=== PATIENT | male | born 1980 | race Caucasian/White ===

== ENCOUNTER 2017-02-15 06:53 | Inpatient (IN) | payer OTHER ==
--- NOTE | 2017-02-15 08:07 | ER Document Report ---
ED Medical Screen (RME) - General Chief Complaint: Abscess Stated Complaint: LEFT ARM ABRASION Time seen by provider: 08:03 Mode of Arrival: Ambulatory Information source: Patient Notes: 36 yo male presents to ed for infected needle stick to left AC. States the swelling and redness has been for a week and he lanced it just before coming to ed. TRAVEL OUTSIDE OF THE [place] IN LAST 30 DAYS: No - HPI Onset: Last week Onset/Duration: Gradual Quality of pain: Sharp, Throbbing Pain Level: 4 Associated Symptoms: Other - swelling and redness to arm Exacerbated by: Movement Relieved by: Denies - Related Data Smoking: Cigarettes, Other - 1/2 ppd Frequency of alcohol use: None Drug Abuse: Heroin, Methamphetamine Allergies/Adverse Reactions: No Known Allergies Allergy (Verified 02/22/15 19:01) Past Medical History Renal/ Medical History: Denies: Hx Peritoneal Dialysis - Immunizations Hx Diphtheria, Pertussis, Tetanus Vaccination: No Physical Exam - Vital signs Vitals: Temp Pulse Resp BP Pulse Ox 98.9 F 118 H 18 141/80 H 99 02/15/17 07:00 02/15/17 07:00 02/15/17 07:00 02/15/17 07:00 02/15/17 07:00 Course - Vital Signs Vital signs: Temp Pulse Resp BP Pulse Ox 98.9 F 118 H 18 141/80 H 99 02/15/17 07:00 02/15/17 07:00 02/15/17 07:00 02/15/17 07:00 02/15/17 07:00
[2017-02-15 08:53] LABS: ABSOLUTE EOSINOPHILS # (AUTO) 0.1 10^3/uL (0.0-0.6); ABSOLUTE LYMPHOCYTES (AUTO) 1.8 10^3/uL (0.5-4.7); ABSOLUTE NEUT (AUTO) 7.3 10^3/uL (1.7-8.2); BASOPHILS % (AUTO) 0.4 % (0-2); EOSINOPHILS % (AUTO) 0.9 % (0-6); HEMATOCRIT 46.3 % (37.9-51.0); HEMOGLOBIN 16.1 g/dL (13.5-17.0); LYMPHOCYTES % (AUTO) 17.1 % (13-45); MEAN CORPUSCULAR HEMOGLOBIN 31.1 pg (27.0-33.4); MEAN CORPUSCULAR HGB CONC 34.8 g/dL (32.0-36.0); MEAN CORPUSCULAR VOLUME 90 fl (80-97); MONOCYTES % (AUTO) 10.2 % (3-13); RED BLOOD COUNT 5.17 10^6/uL (4.35-5.55); RED CELL DISTRIBUTION WIDTH 13.7 % (11.5-14.0); SEGMENTED NEUTROPHILS % (AUTO) 71.4 % (42-78); WHITE BLOOD COUNT 10.3 10^3/uL (4.0-10.5)
[2017-02-15 09:00] LABS: APPEARANCE,URINE SLIGHTLY-CLOUDY; BILIRUBIN,URINE NEGATIVE (NEGATIVE); CALCIUM OXALATE CRYSTALS,URINE FEW /HPF; GLUCOSE, URINE NEGATIVE (NEGATIVE); KETONES,URINE NEGATIVE (NEGATIVE); LEUKOCYTE ESTERASE,URINE NEGATIVE (NEGATIVE); NITRITE,URINE NEGATIVE (NEGATIVE); PROTEIN,URINE 30 mg/dL (NEGATIVE); URINE SPECIFIC GRAVITY 1.031
[2017-02-15 09:12] LABS: ALANINE AMINOTRANSFERASE 261 U/L (21-72); ALBUMIN 4.8 g/dL (3.5-5.0); ALKALINE PHOSPHATASE 81 U/L (38-126); ANION GAP 14 (5-19); ASPARTATE AMINO TRANSFERASE 98 U/L (17-59); BILIRUBIN,DIRECT 0.4 mg/dL (0.0-0.4); BILIRUBIN,TOTAL 1.3 mg/dL (0.2-1.3); BLOOD UREA NITROGEN 13 mg/dL (7-20); CARBON DIOXIDE 30 mmol/L (22-30); CHLORIDE 98 mmol/L (98-107); CREATININE RESULT 0.71 mg/dL (0.52-1.25); GLUCOSE 87 mg/dL (75-110); POTASSIUM 3.5 mmol/L (3.6-5.0); SODIUM 141.8 mmol/L (137-145); TOTAL PROTEIN 8.6 g/dL (6.3-8.2)
[2017-02-15 09:17] LABS: URINE BARBITURATES SCREEN NEGATIVE; URINE METHADONE SCREEN NEGATIVE; URINE OPIATES LOW UNCONFIRMED POSITIVE; URINE PHENCYCLIDINE SCREEN NEGATIVE
[2017-02-15] MEDS ORDERED: CLINDAMYCIN HCL 150 MG CAPSULE PO ONE (10:11)
--- NOTE | 2017-02-15 10:12 | ER Document Report ---
ED General - General Chief Complaint: Abscess Stated Complaint: LEFT ARM ABRASION Mode of Arrival: Ambulatory TRAVEL OUTSIDE OF THE [place] IN LAST 30 DAYS: No - HPI Patient complains to provider of: left arm abscess Notes: Patient has a history of polysubstance abuse and is a IV drug user coming in for possible abscess in the left antecubital region. Patient states that she has recently used IV drugs with formation of her red lump in the crease of his arm he did try to drain the abscess and self with a suppressed cut stated there was only clear fluid that was expressed from the wound. Patient denies fevers chills nausea vomiting - Related Data Allergies/Adverse Reactions: No Known Allergies Allergy (Verified 02/22/15 19:01) Past Medical History - General Information source: Patient - Social History Smoking Status: Current Every Day Smoker Chew tobacco use (# tins/day): No Frequency of alcohol use: None Drug Abuse: Heroin, Methamphetamine Family History: Reviewed & Not Pertinent. denies: CAD Patient has suicidal ideation: No Patient has homicidal ideation: No Renal/ Medical History: Denies: Hx Peritoneal Dialysis - Immunizations Hx Diphtheria, Pertussis, Tetanus Vaccination: No Physical Exam - Vital signs Vitals: Temp Pulse Resp BP Pulse Ox 98.9 F 118 H 18 141/80 H 99 02/15/17 06:59 02/15/17 06:59 02/15/17 06:59 02/15/17 06:59 02/15/17 06:59 Interpretation: Normal - General General appearance: Appears well, Alert - HEENT Head: Normocephalic, Atraumatic Eyes: Normal Pupils: PERRL - Respiratory Respiratory status: No respiratory distress Chest status: Nontender Breath sounds: Normal Chest palpation: Normal - Cardiovascular Rhythm: Regular Heart sounds: Normal auscultation Murmur: No - Abdominal Inspection: Normal Distension: No distension Bowel sounds: Normal Tenderness: Nontender Organomegaly: No organomegaly - Back Back: Normal, Nontender - Extremities General upper extremity: Nontender, Normal color, Normal ROM, Normal temperature. No: Normal inspection - Patient has a golf ball size lump in the crease of the left antecubital region with bedside ultrasound showing fluid collection and within the fluid collection there visualization of a vessel General lower extremity: Normal inspection, Nontender, Normal color, Normal ROM , Normal temperature, Normal weight bearing. No: Oscar's sign - Neurological Neuro grossly intact: Yes Cognition: Normal Orientation: AAOx4 [place] Coma Scale Eye Opening: Spontaneous [place] Coma Scale Verbal: Oriented [place] Coma Scale Motor: Obeys Commands [place] Coma Scale Total: 15 Speech: Normal Motor strength normal: LUE, RUE, LLE, RLE Sensory: Normal - Psychological Associated symptoms: Normal affect, Normal mood - Skin Skin Temperature: Warm Skin Moisture: Dry Skin Color: Normal Course - Re-evaluation Re-evalutation: 02/15/17 10:11 Concern for abscess and antecubital fossa due to patient admitting to be an IV drug user. Bedside ultrasound that showed possible fluid collection around antecubital vein. Contacted surgeon on-call for possible IND 02/15/17 15:09 Surgery will take the patient to the OR. Patient was given oral clindamycin initially will add on IV antibiotics. - Vital Signs Vital signs: Temp Pulse Resp BP Pulse Ox 98.9 F 118 H 18 141/80 H 99 02/15/17 07:00 02/15/17 07:00 02/15/17 07:00 02/15/17 07:00 02/15/17 07:00 - Laboratory Result Diagrams: 02/15/17 08:20 02/15/17 08:20 Laboratory results interpreted by me: 02/15/17 02/15/17 08:20 08:20 Potassium 3.5 L AST 98 H ALT 261 H Total Protein 8.6 H Urine Protein 30 H Urine Urobilinogen 4.0 H Discharge - Discharge Clinical Impression: left antecubital abscess, IV drug user Admitting Provider: Surgicalist - [facility] Admitted: OR
[2017-02-15] MEDS ORDERED: AMPICILLIN SOD/SULBACTAM 3 GM VIAL IV ONE (12:30)
[2017-02-15] MEDS ORDERED: NORMAL SALINE 1000 ML 1,000 ML IV ONE ×2 (12:30)
[2017-02-15] MEDS ORDERED: LIDOCAINE 0.5% INJ-PF (5 MG/ML) 50 ML SDV ONE (16:27)
[2017-02-15] MEDS ORDERED: PROPOFOL INJ 200 MG/20 ML VIAL IV ONE (17:00)
[2017-02-15] MEDS ORDERED: DEXMEDETOMIDINE INJ 80 MCG/20 ML VIAL IV ONE (17:01)
[2017-02-15] MEDS ORDERED: MIDAZOLAM 2 MG/2 ML INJ ONE (17:01)
[2017-02-15] MEDS ORDERED: FENTANYL CITRATE INJ/PF 100 MCG/2 ML AMPUL ONE (17:01)
[2017-02-15] MEDS ORDERED: ONDANSETRON HCL INJ/PF 4 MG/2 ML SDV ONE (17:01)
[2017-02-15] MEDS ORDERED: FENTANYL CITRATE INJ/PF 100 MCG/2 ML AMPUL IV PRN ×3 (17:24)
[2017-02-15] MEDS ORDERED: MEPERIDINE HCL/PF INJ 25 MG/1 ML DISP.SYRIN IV PRN (17:24)
[2017-02-15] MEDS ORDERED: PROMETHAZINE HCL INJ 25 MG/1 ML VIAL IV PRN ×2 (17:24)
[2017-02-15] MEDS ORDERED: DIPHENHYDRAMINE HCL 50 MG/ML VIAL IV PRN (17:24)
--- NOTE | 2017-02-15 17:38 | HISTORY AND PHYSICAL E ---
History and Physical NAME: ROSA MITTAL : 1980 AGE: 36Y ADMITTED: 02/15/2017 ROOM: ED47 CHIEF COMPLAINT: Left arm pain. HISTORY OF PRESENT ILLNESS: This is a 36-year-old male who injected his left cubital area with heroin about 5 to 7 days ago. Today, he noted it be getting bigger, half a golf ball size according to the patient, that he tried to make a cut and remove some bloody mildly purulent material. He decided to come to the emergency room because it is still swollen and painful and red. PAST MEDICAL HISTORY: He has a past history of a sinus infection at this time. SOCIAL HISTORY: History of off and on IV drug use. He claims he does not use it regularly to prevent the risk of withdrawal symptoms. ALLERGIES: None known. REVIEW OF SYSTEMS: As in HPI, having cough and some nasal congestion. Left arm pain and swelling of the left elbow site. The rest of the systems unremarkable. PHYSICAL EXAMINATION: GENERAL: Well-developed, well-nourished, 36-year-old male, alert and oriented, complaining of left arm pain. HEENT: Neck is supple, and the face has some reddish circular areas. LUNGS: Clear. HEART: Showed regular sinus rhythm. ABDOMEN: Soft and nontender. EXTREMITIES: On the left cubital area, there is a reddish elevated site roughly about 5 x 6 cm by about 3 cm. There is a maceration on the mid part about 1.5 cm long but noted to be dry. It is noted to be very tender. The rest of the mid arm is red. Left arm pulses are palpable. IMPRESSION: Abscess of the left cubital area of the left arm. PLAN: The plan is for patient incision and drainage of the abscess. DICTATING PHYSICIAN: BRADLEY WOLF M.D. [id number] PHY#: [id number] ID: [id number] JOB#: [id number] ACCT: [id number] cc:BRADLEY WOLF M.D. NO Felicita NERI
[2017-02-15] MEDS ORDERED: LIDOCAINE 1% INJ-PF (10 MG/ML) 30 ML SDV ONE (17:54)
[2017-02-15] MEDS ORDERED: BUPIVACAINE HCL 0.5 % INJ/PF 30 ML SDV ONE (17:54)
--- NOTE | 2017-02-15 18:08 | OPERATIVE REPORT E ---
Operative Report NAME: ROSA MITTAL : 1980 AGE: 36Y DATE OF SURGERY: 02/15/2017 ROOM: ED47 PREOPERATIVE DIAGNOSIS: Abscess left cubital area of the left arm. POSTOPERATIVE DIAGNOSIS: Abscess left cubital area of the left arm. OPERATION: Incision and drainage and Pulse Evac of the left cubital abscess. SURGEON: BRADLEY WOLF M.D. ANESTHESIA: Local, MAC. INDICATION: This is a 36-year-old male who injected his left forearm vein with heroin about 5 to 7 days ago. This is noted to be more swollen today, and he attempted to make a little incision with a knife on top of it. However, it still swollen and painful and therefore went to the ER. DESCRIPTION OF PROCEDURE: After adequate IV sedation, the left cubital area was then prepped and draped in the usual sterile fashion. Local anesthesia infiltrated over the abscess in a tangential fashion following the previous cut made by the patient. Next, a small amount of purulent material gushed out and a specimen obtained for culture. The incision site was then probed and extended distally and proximally to about 3 cm long. The cavity was completely evacuated. It was subsequently Pulse Evac with 2 liters of saline. Following this, hemostasis obtained with electrocautery and the defect packed with 1/4-inch Iodoform gauze. A sterile dressing was placed over the operative site. Needle, instrument, and sponge count were all correct, and estimated blood loss was minimal. DICTATING PHYSICIAN: BRADLEY WOLF M.D. [id number] PHY#: [id number] ID: [id number] JOB#: [id number] ACCT: [id number] cc:BRADLEY WOLF M.D. >
[2017-02-15] MEDS ORDERED: OXYCODONE-ACETAMINOPHEN 5-325 MG TABLET PO PRN (18:21)
[2017-02-15] MEDS ORDERED: NORMAL SALINE 1000 ML 1,000 ML IV PRN (18:24)
[2017-02-15] MEDS ORDERED: AMPICILLIN SODIUM/SULBACTAM NA 3 GM in NORMAL SALINE 100 ML IV ONE (19:45)
[2017-02-15] MEDS: AMPICILLIN SODIUM/SULBACTAM NA 3 GM in NORMAL SALINE 100 ML IV SCH (19:52)
[2017-02-15] MEDS: MORPHINE SULFATE 10 MG/ML INJ IV PRN ×2 (19:52→20:17)
[2017-02-16] MEDS: AMPICILLIN SODIUM/SULBACTAM NA 3 GM in NORMAL SALINE 100 ML IV SCH ×4 (04:31→23:16)
--- NOTE | 2017-02-16 18:33 | PROGRESS NOTE E ---
Progress Note NAME: ROSA MITTAL : 1980 AGE: 36Y DATE: 02/16/2017 ROOM: 530 SUBJECTIVE: It is postoperative day #1 post I and D of left cubital abscess. The preliminary Gram stain showed 1+ gram-positive cocci and 1+ small gram-negative rods. Wound culture: No reportable results at this time. In the meantime, I continued him on Unasyn which should cover both bacteria. OBJECTIVE: He is afebrile, and his white count yesterday was normal. The left arm was more swollen this morning, and I told him to elevate the left arm over 2 pillows and I will continue him on IV antibiotics for another day. PLAN: He will be seen by Social Work for assistance as far as further care and housing. DICTATING PHYSICIAN: BRADLEY WOLF M.D. [id number] PHY#: [id number] ID: [id number] JOB#: [id number] ACCT: [id number] cc: >
[2017-02-17] MEDS: AMPICILLIN SODIUM/SULBACTAM NA 3 GM in NORMAL SALINE 100 ML IV SCH (05:39)
--- NOTE | 2017-02-17 07:38 | DISCHARGE SUMMARY E ---
Discharge Summary NAME: ROSA MITTAL : 1980 AGE: 36Y ADMITTED: 02/15/2017 DISCHARGED: FINAL DIAGNOSIS: Abscess of the left arm antecubital area. SUMMARY: This is a 36-year-old male who developed pains and swelling along the left cubital area about a week after injecting heroin through it. He tried to jg the swelling on the day of admission on 02/14/2017. However, there still was significant amount of swelling and inflammation. Because of this, he was taken to the OR on 02/15/2017 where a small amount of purulent material was removed and the wound packed. The packing was removed on the day of discharge and the wound looks good. The Gram's stain only showed gram-positive cocci and gram-negative rods 1+ each. He is concerned about hepatitis, so I just ordered it to be drawn prior to discharge for hepatitis screen. Also, I gave him a prescription for clindamycin 300 mg p.o. q.i.d. for 7 days and to be followed in the surgical clinic in a week or 2. DICTATING PHYSICIAN: BRADLEY WOLF M.D. [id number] PHY#: [id number] ID: [id number] JOB#: [id number] ACCT: [id number] cc:Felicita LYN MD, M.D. SAVITA CESAR >
[2017-02-17 08:40] LABS: ABSOLUTE EOSINOPHILS # (AUTO) 0.2 10^3/uL (0.0-0.6); ABSOLUTE LYMPHOCYTES (AUTO) 1.4 10^3/uL (0.5-4.7); ABSOLUTE MONOCYTES (AUTO) 0.6 10^3/uL (0.1-1.4); ABSOLUTE NEUT (AUTO) 3.9 10^3/uL (1.7-8.2); BASOPHILS % (AUTO) 0.7 % (0-2); EOSINOPHILS % (AUTO) 3.3 % (0-6); HEMATOCRIT 40.1 % (37.9-51.0); HGB HCT DIFFERENCE 1.9; LYMPHOCYTES % (AUTO) 22.4 % (13-45); MEAN CORPUSCULAR HEMOGLOBIN 31.2 pg (27.0-33.4); MEAN CORPUSCULAR HGB CONC 34.9 g/dL (32.0-36.0); MEAN CORPUSCULAR VOLUME 89 fl (80-97); MONOCYTES % (AUTO) 9.8 % (3-13); RED BLOOD COUNT 4.49 10^6/uL (4.35-5.55); RED CELL DISTRIBUTION WIDTH 13.5 % (11.5-14.0); SEGMENTED NEUTROPHILS % (AUTO) 63.8 % (42-78); WHITE BLOOD COUNT 6.2 10^3/uL (4.0-10.5)
[2017-02-17 10:16] VITALS: BP 116/78
== END 2017-02-17 10:52 | disposition home or self-care (01) | DRG 581 ==
LOC: ER 06:53 → UNDOADMIN 13:09 → EH 13:09 → 5 17:05 → EH 18:50 → 5 18:50
PROVIDERS: ADMIT Surgery; ATTEND Surgery
PROC: 0J9F0ZZ Drainage of Left Upper Arm Subcutaneous Tissue and Fascia, Open Approach (ICD-10-PCS; principal; 2017-02-15 17:30)
DX: L02.414 Cutaneous abscess of left upper limb (principal); B95.4 Other streptococcus as the cause of diseases classified elsewhere; B96.89 Other specified bacterial agents as the cause of diseases classified elsewhere; F19.10 Other psychoactive substance abuse, uncomplicated; F17.210 Nicotine dependence, cigarettes, uncomplicated; F11.10 Opioid abuse, uncomplicated; F15.10 Other stimulant abuse, uncomplicated; Y28.8XXA Contact with other sharp object, undetermined intent, initial encounter; Y93.89 Activity, other specified; Y92.9 Unspecified place or not applicable; Z59.0 Homelessness
CPT/HCPCS: 00400; 36415; 80053; 80074; 80307; 81001; 85025; 87040; 87070; 87075; 87077; 87205; 99284; J0295; J2250; J2270; J2405; J2704; J3010; J3490; J7030